=== PATIENT | male | born 1950 | race Hispanic/Latino ===

== ENCOUNTER 2017-05-06 13:11 | Emergency (ER) | payer OTHER, MEDICARE ==
[2017-05-06 13:39] LABS: BASOPHILS % (AUTO) 0.7 % (0.0-5.0); EOSINOPHILS % (AUTO) 6.3 % (0.0-8.0); HEMATOCRIT 47.9 % (42-54); LYMPHOCYTES % (AUTO) 17.4 % (21.0-51.0); MEAN CORPUSCULAR HEMOGLOBIN 32.2 pg (27.0-33.0); MEAN CORPUSCULAR HGB CONC 33.3 g/dL (32.0-36.0); MEAN CORPUSCULAR VOLUME 96.8 fL (79-99); MONOCYTES % (AUTO) 10.9 % (3.0-13.0); NEUTROPHILS % (AUTO) 64.7 % (40.0-77.0); PLATELET COUNT (AUTO) 166 K/uL (130-400); RED BLOOD CELL COUNT(AUTO) 4.94 MIL/uL (4.50-6.20); RED CELL DISTRIBUTION WIDTH 13.6 % (11.0-15.5); WHITE BLOOD COUNT (AUTO) 11.1 K/uL (4.8-10.8)
[2017-05-06] MEDS ORDERED: MORPHINE SULFATE 4 MG/1ML SYG ONE (13:44)
[2017-05-06 14:17] LABS: CREATININE 0.9 mg/dL (0.5-1.5); POTASSIUM 3.8 mmol/L (3.5-5.1)
[2017-05-06 14:22] LABS: APPEARANCE,URINE Clear (CLEAR); BILIRUBIN,URINE Negative (NEGATIVE); COLOR,URINE Yellow (YELLOW); GLUCOSE, URINE (UA) Negative (NEGATIVE); KETONES,URINE Negative (NEGATIVE); LEUKOCYTE ESTERASE ,URINE Negative (NEGATIVE); NITRATE,URINE Negative (NEGATIVE); OCCULT BLOOD,URINE Negative (NEGATIVE); PH,URINE 7.5 (5.0-8.0); PROTEIN,URINE Negative (NEGATIVE)
[2017-05-06 14:24] LABS: ALBUMIN 3.2 g/dL (3.5-5.0); BILIRUBIN,TOTAL 0.5 mg/dL (0.2-1.0); TOTAL PROTEIN, SERUM 7.2 g/dL (6.0-8.3)
[2017-05-06] MEDS ORDERED: LIDOCAINE 5% TOPICAL PATCH TP ONE (17:08)
[2017-05-06] MEDS ORDERED: KETOROLAC TROMETHAMINE 15MG/ML ONE (17:08)
[2017-05-06] MEDS ORDERED: ACETAMINOPHEN 325 MG TAB ONE (17:09)
== END 2017-05-06 17:40 | disposition home or self-care (01) ==
LOC: EDH 13:11
DX: M54.16 Radiculopathy, lumbar region (principal); I10 Essential (primary) hypertension; E78.5 Hyperlipidemia, unspecified; E11.9 Type 2 diabetes mellitus without complications; Z87.891 Personal history of nicotine dependence
CPT/HCPCS: 36415; 73502; 80053; 81003; 85025; 85651; 96374; 96375; 99285; J1885; J2270

== ENCOUNTER 2018-09-15 13:40 | Emergency (ER) | payer OTHER, MEDICARE ==
[2018-09-15 14:37] LABS: BASOPHILS % (AUTO) 0.7 % (0.0-5.0); EOSINOPHILS % (AUTO) 6.7 % (0.0-8.0); HEMATOCRIT 47.5 % (42-54); LYMPHOCYTES % (AUTO) 12.8 % (21.0-51.0); MEAN CORPUSCULAR HEMOGLOBIN 32.7 pg (27.0-33.0); MEAN CORPUSCULAR HGB CONC 34.1 g/dL (32.0-36.0); MEAN CORPUSCULAR VOLUME 95.9 fL (79-99); MONOCYTES % (AUTO) 9.2 % (3.0-13.0); NEUTROPHILS % (AUTO) 70.6 % (40.0-77.0); NUCLEATED RED BLOOD CELLS 0.1 % (0.0-0.19); PLATELET COUNT (AUTO) 128 K/uL (130-400); RED BLOOD CELL COUNT(AUTO) 4.95 MIL/uL (4.50-6.20); RED CELL DISTRIBUTION WIDTH 14.2 % (11.0-15.5); WHITE BLOOD COUNT (AUTO) 11.1 K/uL (4.8-10.8)
[2018-09-15] MEDS ORDERED: ORPHENADRINE CITRATE 30 MG/ML ML ONE (14:37)
[2018-09-15] MEDS ORDERED: ASPIRIN 325 MG TABLET ONE (14:37)
[2018-09-15] MEDS ORDERED: ACETAMINOPHEN EXTRA STRENGTH 500 MG TABLET ONE (14:38)
[2018-09-15] MEDS ORDERED: LIDOCAINE 5% TOPICAL PATCH TP ONE (14:38)
[2018-09-15 14:56] LABS: CREATININE 0.9 mg/dL (0.5-1.5); POTASSIUM 4.2 mmol/L (3.5-5.1)
[2018-09-15 15:06] LABS: ALBUMIN 3.5 g/dL (3.5-5.0); BILIRUBIN,TOTAL 0.9 mg/dL (0.2-1.0); TOTAL PROTEIN, SERUM 7.2 g/dL (6.0-8.3)
[2018-09-15 15:07] LABS: INR 1.12 (0.85-1.15); PARTIAL THROMBOPLASTIN TIME 36.8 SEC (26.3-35.5); PROTHROMBIN TIME 11.7 SEC (9.6-11.6)
[2018-09-15 15:29] LABS: B-TYPE NATRIURETIC PEPTIDE 61 pg/mL (0-100)
== END 2018-09-15 16:01 | disposition home or self-care (01) ==
LOC: EDH 13:40
DX: S16.1XXA Strain of muscle, fascia and tendon at neck level, initial encounter (principal); S29.011A Strain of muscle and tendon of front wall of thorax, initial encounter; I10 Essential (primary) hypertension; E11.9 Type 2 diabetes mellitus without complications; E78.5 Hyperlipidemia, unspecified; Z98.890 Other specified postprocedural states; V59.59XA Passenger in pick-up truck or van injured in collision with other motor vehicles in traffic accident, initial encounter; Y93.89 Activity, other specified; Y92.410 Unspecified street and highway as the place of occurrence of the external cause; Y99.8 Other external cause status
CPT/HCPCS: 36415; 71045; 80053; 82550; 83874; 83880; 84484; 85025; 85610; 85730; 93005; 96374; 99285; J2360

== ENCOUNTER 2019-06-23 14:44 | Emergency (ER) | payer OTHER, MEDICARE ==
[2019-06-23 15:17] LABS: BASOPHILS % (AUTO) 1.3 % (0.0-5.0); EOSINOPHILS % (AUTO) 13.4 % (0.0-8.0); LYMPHOCYTES % (AUTO) 17.7 % (21.0-51.0); MEAN CORPUSCULAR HEMOGLOBIN 31.6 pg (27.0-33.0); MEAN CORPUSCULAR HGB CONC 33.8 g/dL (32.0-36.0); MEAN CORPUSCULAR VOLUME 93.3 fL (79-99); MONOCYTES % (AUTO) 9.7 % (3.0-13.0); NEUTROPHILS % (AUTO) 57.3 % (40.0-77.0); PLATELET COUNT (AUTO) 121 K/uL (130-400); RED CELL DISTRIBUTION WIDTH 13.2 % (11.0-15.5); WHITE BLOOD COUNT (AUTO) 6.4 K/uL (4.8-10.8)
[2019-06-23 15:28] LABS: POTASSIUM 3.7 mmol/L (3.5-5.1)
[2019-06-23 15:33] LABS: ALBUMIN 3.5 g/dL (3.5-5.0); BILIRUBIN,TOTAL 0.9 mg/dL (0.2-1.0); CRP QUANTITATIVE 2.6 mg/L (0.00-9.0); TOTAL PROTEIN, SERUM 6.9 g/dL (6.0-8.3)
[2019-06-23 16:24] LABS: ERYTHROCYTE SEDIMENTATION RATE 14 MM/HR (0-20)
[2019-06-23 16:30] LABS: APPEARANCE,URINE Clear (CLEAR); BILIRUBIN,URINE Negative (NEGATIVE); COLOR,URINE Yellow (YELLOW); GLUCOSE, URINE (UA) Negative (NEGATIVE); KETONES,URINE Negative (NEGATIVE); LEUKOCYTE ESTERASE ,URINE Small (NEGATIVE); NITRATE,URINE Negative (NEGATIVE); OCCULT BLOOD,URINE Negative (NEGATIVE); PROTEIN,URINE Negative (NEGATIVE)
[2019-06-23 16:47] LABS: BACTERIA,URINE Rare /HPF (None Seen); RBC,URINE None Seen /HPF (0-1); SQUAMOUS EPITHELIAL CELL,UR 0-2 /HPF (0-2); WBC,URINE 0-1 /HPF (0-1)
[2019-06-23 16:48] LABS: B-TYPE NATRIURETIC PEPTIDE 111 pg/mL (0-100)
[2019-06-23] MEDS ORDERED: CLINDAMYCIN 600 MG/D5% WATER 50 ML IV ONE (16:49)
== END 2019-06-23 17:36 | disposition home or self-care (01) ==
LOC: EDH 14:44
DX: L03.116 Cellulitis of left lower limb (principal); E11.65 Type 2 diabetes mellitus with hyperglycemia; R60.0 Localized edema; I10 Essential (primary) hypertension; E78.5 Hyperlipidemia, unspecified; Z87.891 Personal history of nicotine dependence
CPT/HCPCS: 36415; 71045; 73590; 80053; 81001; 82550; 83880; 84484; 85025; 85651; 86140; 93005; 93971; 96365; 99285; J3490

== ENCOUNTER → 2019-09-10 | Outpatient (CLI) | payer OTHER, MEDICARE ==
[~2019-09-10] MED LIST: ASPI-1005 PO; DEXA4 PO
== END | disposition home or self-care (01) ==
LOC: SHCH 13:21
PROVIDERS: ATTEND Internal Medicine Cardiovascular Disease
DX: I48.0 Paroxysmal atrial fibrillation (principal)
CPT/HCPCS: 93306

== ENCOUNTER → 2019-10-15 | Outpatient (CLI) | payer OTHER, MEDICARE | END | disposition home or self-care (01) | LOC: OIH 14:12 | PROVIDERS: ATTEND Internal Medicine | DX: M47.895 Other spondylosis, thoracolumbar region (principal); M47.898 Other spondylosis, sacral and sacrococcygeal region; M06.4 Inflammatory polyarthropathy; M25.78 Osteophyte, vertebrae; G95.19 Other vascular myelopathies | CPT/HCPCS: 72100; 72202 ==

== ENCOUNTER 2019-11-21 18:30 | Inpatient (IN) | payer OTHER, MEDICARE ==
[~2019-11-21] VITALS: Ht 167.6 cm; Wt 131.1 kg
[2019-11-21] MEDS: AZITHROMYCIN 500MG+NS 250ML 250 ML IV SCH (03:00)
[2019-11-21 19:17] LABS: ABG BASE EXCESS -6.2 mmol/L (-2.0-3.0); ABG HCO3 16.4 mmol/L (21.0-28.0); ABG OXYGEN SATURATION 96.7 % (95.0-99.0); ABG PCO2 27 mmHg (35-48)
[2019-11-21 19:20] LABS: BASOPHILS % (AUTO) 0.6 % (0.0-5.0); EOSINOPHILS % (AUTO) 5.1 % (0.0-8.0); HEMATOCRIT 46.2 % (42-54); LYMPHOCYTES % (AUTO) 8.7 % (21.0-51.0); MEAN CORPUSCULAR HEMOGLOBIN 30.7 pg (27.0-33.0); MEAN CORPUSCULAR HGB CONC 34.8 g/dL (32.0-36.0); MONOCYTES % (AUTO) 4.1 % (3.0-13.0); NEUTROPHILS % (AUTO) 80.9 % (40.0-77.0); PLATELET COUNT (AUTO) 177 K/uL (130-400); RED BLOOD CELL COUNT(AUTO) 5.25 MIL/uL (4.50-6.20); RED CELL DISTRIBUTION WIDTH 13.1 % (11.0-15.5); WHITE BLOOD COUNT (AUTO) 7.9 K/uL (4.8-10.8)
[2019-11-21 19:29] LABS: INR 1.08 (0.85-1.15); PARTIAL THROMBOPLASTIN TIME 27.4 SEC (26.3-35.5); PROTHROMBIN TIME 11.6 SEC (9.6-11.6)
[2019-11-21 19:40] LABS: POTASSIUM 3.8 mmol/L (3.5-5.1)
[2019-11-21] MEDS ORDERED: DEXAMETHASONE SOD PHOSPHATE 10MG/ML 1ML VIAL ONE (19:43)
[2019-11-21 19:44] LABS: ALBUMIN 2.9 g/dL (3.5-5.0); BILIRUBIN,TOTAL 1.3 mg/dL (0.2-1.0); CRP QUANTITATIVE 93.7 mg/L (0.00-9.0); TOTAL PROTEIN, SERUM 7.4 g/dL (6.0-8.3)
[2019-11-21 19:45] LABS: B-TYPE NATRIURETIC PEPTIDE 62 pg/mL (0-100)
[2019-11-21] MEDS ORDERED: CEFTRIAXONE SODIUM 1 GM ONE (20:12)
[2019-11-21] MEDS ORDERED: ENOXAPARIN SODIUM 40 MG/0.4 ML SYRINGE SQ ONE (20:12)
[2019-11-21] MEDS ORDERED: AZITHROMYCIN 250 MG TABLET PO ONE (20:13)
[2019-11-21] MEDS ORDERED: ALBUTEROL INHALER 90MCG/INH IH PRN (22:45)
[2019-11-21] MEDS ORDERED: SODIUM CHLORIDE 0.9% 1000ML 1,000 ML IV SCH (22:45)
[2019-11-21] MEDS ORDERED: ACETAMINOPHEN 325 MG TAB PO PRN (22:45)
[2019-11-21] MEDS ORDERED: ONDANSETRON HCL 4 MG/2 ML VIAL IVP PRN (22:45)
[2019-11-21] MEDS ORDERED: HYDRALAZINE HCL 20 MG/ML VIAL IV PRN (22:45)
[2019-11-21] MEDS ORDERED: ALBUTEROL INHALER 90MCG/INH IH ONE (23:13)
[2019-11-21] MEDS ORDERED: SODIUM CHLORIDE 0.9% 1000ML 1,000 ML IV ONE (23:13)
--- NOTE | 2019-11-22 02:05 | NUR ---
patient request to leave ama , however patient is blind and spouse was called and explained the plan of care and the importance of staying. After speaking to the [phone], was requesting patient to stay until the morning. I have discussed the importance of patient staying, he did sign ama form but pending family to come and see, will tell day shift so that md can be notified.
[2019-11-22] MEDS: AZITHROMYCIN 500MG+NS 250ML 250 ML IV SCH (03:00)
[2019-11-22 04:24] LABS: ABG BASE EXCESS -8.8 mmol/L (-2.0-3.0); ABG HCO3 15.5 mmol/L (21.0-28.0); ABG OXYGEN SATURATION 97.7 % (95.0-99.0); ABG PCO2 30 mmHg (35-48)
[2019-11-22] MEDS ORDERED: DEXAMETHASONE SOD PHOSPHATE 4 MG/ML 5ML VIAL ONE (05:17)
[2019-11-22 06:42] LABS: HEMATOCRIT 44.3 % (42-54); MEAN CORPUSCULAR HEMOGLOBIN 30.7 pg (27.0-33.0); MEAN CORPUSCULAR HGB CONC 34.8 g/dL (32.0-36.0); MEAN CORPUSCULAR VOLUME 88.2 fL (79-99); RED BLOOD CELL COUNT(AUTO) 5.02 MIL/uL (4.50-6.20); RED CELL DISTRIBUTION WIDTH 12.9 % (11.0-15.5); WHITE BLOOD COUNT (AUTO) 4.8 K/uL (4.8-10.8)
[2019-11-22 07:03] LABS: POTASSIUM 4.1 mmol/L (3.5-5.1)
[2019-11-22] MEDS ORDERED: INSULIN HUMULIN R 100 UNIT/ML 3ML SQ SCH (07:30)
[2019-11-22] MEDS ORDERED: ENOXAPARIN SODIUM 60 MG/0.6 ML SQ ONE (08:37)
[2019-11-22] MEDS ORDERED: DEXAMETHASONE 4 MG TAB ONE (08:37)
[2019-11-22] MEDS ORDERED: METOPROLOL TARTRATE 25 MG TAB ONE (08:37)
[2019-11-22] MEDS ORDERED: DEXAMETHASONE SOD PHOSPHATE 4 MG/ML 1ML VIAL IVP SCH (09:00)
[2019-11-22] MEDS ORDERED: DEXAMETHASONE 4 MG TAB PO SCH (09:00)
[2019-11-22] MEDS: ENOXAPARIN SODIUM 60 MG/0.6 ML SQ SCH ×2 (10:45→22:45)
--- NOTE | 2019-11-22 18:39 | NUR ---
INITIAL: Call placed to ENRIQUE Flores(spouse). Prior to admission pt was living w her and son. PT was independent w ambulation and ADLs. Pt has a nebulizer if needed. Pt was also receiving provider services thru [facility] from 8a-2pm. Per Sandra, dcp is for home. CM to continue to follow and wait for Md recommendations. Addendum: 11/22/19 at 1840 by XIANG RIZO Amended: Links added.
[2019-11-22] MEDS ORDERED: GUAIFENESIN-DM 200/20 MG 10 ML PO PRN (20:30)
[2019-11-22] MEDS ORDERED: MAG HYDROX/AL HYDROX/SIMETH ES 30 ML SUSP UDCUP PO PRN (20:30)
[2019-11-22] MEDS ORDERED: HYDRALAZINE HCL 20 MG/ML VIAL IV PRN (20:30)
[2019-11-22] MEDS ORDERED: NITROGLYCERIN 0.4 MG SL TAB SL PRN (20:30)
[2019-11-22] MEDS ORDERED: POTASSIUM CHLORIDE 10% ELIXIR 20 MEQ/15 ML UDCUP PO PRN (20:30)
[2019-11-22] MEDS ORDERED: LACTULOSE 20 GM/30 ML UDCUP PO PRN (20:30)
[2019-11-22] MEDS ORDERED: ONDANSETRON HCL 4 MG/2 ML VIAL IV PRN (20:30)
[2019-11-22] MEDS ORDERED: DiphenhydrAMINE HCL 50 MG/ML VIAL IV PRN (20:30)
[2019-11-22] MEDS ORDERED: LIDOCAINE HCL-MPF 1% 2ML VIAL IV PRN (20:30)
[2019-11-22] MEDS ORDERED: POTASSIUM CHLORIDE 20MEQ/100ML 100 ML IV PRN (20:30)
[2019-11-22] MEDS ORDERED: POTASSIUM CHLORIDE 20 MEQ ERTAB PO PRN (20:30)
[2019-11-22] MEDS ORDERED: MORPHINE SULFATE 2 MG/ML 1ML SYG IV PRN (20:30)
[2019-11-22] MEDS ORDERED: DIPHENHYDRAMINE HCL 25 MG CAPSULE PO PRN (20:30)
[2019-11-22] MEDS ORDERED: MAGNESIUM 2GM PREMIX 50ML 50 ML IV PRN (20:30)
[2019-11-22] MEDS ORDERED: ACETAMINOPHEN 325 MG TAB PO PRN ×2 (20:30)
[2019-11-22] MEDS ORDERED: ZOLPIDEM TARTRATE 5 MG TAB PO PRN (20:30)
[2019-11-22] MEDS: METOPROLOL TARTRATE 25 MG TAB PO SCH (21:00)
[2019-11-22] MEDS: INSULIN HUMULIN R 100 UNIT/ML 3ML SQ SCH (21:00)
[2019-11-22] MEDS ORDERED: FAMOTIDINE 20MG TAB 20 MG TAB ONE (23:27)
[2019-11-23] MEDS ORDERED: ENOXAPARIN SODIUM 60 MG/0.6 ML SQ ONE ×3 (00:39→20:59)
[2019-11-23] MEDS ORDERED: METOPROLOL TARTRATE 25 MG TAB ONE ×3 (00:40→20:59)
[2019-11-23] MEDS: AZITHROMYCIN 500MG+NS 250ML 250 ML IV SCH (03:00)
[2019-11-23] MEDS ORDERED: AZITHROMYCIN 500MG+NS 250ML 250 ML IV ONE (03:43)
[2019-11-23 06:39] LABS: BASOPHILS % (AUTO) 0.2 % (0.0-5.0); HEMATOCRIT 44.4 % (42-54); MEAN CORPUSCULAR HEMOGLOBIN 30.9 pg (27.0-33.0); MEAN CORPUSCULAR HGB CONC 34.9 g/dL (32.0-36.0); MEAN CORPUSCULAR VOLUME 88.4 fL (79-99); MONOCYTES % (AUTO) 5.8 % (3.0-13.0); NEUTROPHILS % (AUTO) 86.4 % (40.0-77.0); PLATELET COUNT (AUTO) 226 K/uL (130-400); RED BLOOD CELL COUNT(AUTO) 5.02 MIL/uL (4.50-6.20); RED CELL DISTRIBUTION WIDTH 13.1 % (11.0-15.5); WHITE BLOOD COUNT (AUTO) 12.4 K/uL (4.8-10.8)
[2019-11-23 07:03] LABS: ALBUMIN 2.8 g/dL (3.5-5.0); BILIRUBIN,TOTAL 0.9 mg/dL (0.2-1.0); CRP QUANTITATIVE 99.4 mg/L (0.00-9.0); MAGNESIUM 2.1 mg/dL (1.80-2.40); THYROID STIMULATING HORMONE 0.51 uIU/mL (0.36-3.74); TOTAL PROTEIN, SERUM 7.3 g/dL (6.0-8.3)
[2019-11-23 07:04] LABS: B-TYPE NATRIURETIC PEPTIDE 169 pg/mL (0-100)
[2019-11-23] MEDS: INSULIN HUMULIN R 100 UNIT/ML 3ML SQ SCH ×4 (07:30→21:00)
[2019-11-23] MEDS: METOPROLOL TARTRATE 25 MG TAB PO SCH ×2 (09:00→21:00)
[2019-11-23] MEDS: FAMOTIDINE 20MG TAB 20 MG TAB PO SCH ×2 (09:00→21:00)
[2019-11-23] MEDS: DEXAMETHASONE 4 MG TAB PO SCH (09:00)
[2019-11-23] MEDS ORDERED: FAMOTIDINE 20MG TAB 20 MG TAB ONE (09:09)
[2019-11-23] MEDS ORDERED: DEXAMETHASONE 4 MG TAB ONE (09:09)
[2019-11-23] MEDS: ENOXAPARIN SODIUM 60 MG/0.6 ML SQ SCH ×2 (10:45→22:45)
[2019-11-23] MEDS ORDERED: FAMOTIDINE/PF 20 MG/2 ML VIAL IV ONE (21:00)
[2019-11-24] VITALS (7 sets, daily range): BP systolic 137–153; BP diastolic 62–96
[2019-11-24] MEDS: AZITHROMYCIN 500MG+NS 250ML 250 ML IV SCH (03:00)
[2019-11-24] MEDS ORDERED: AZITHROMYCIN 500MG+NS 250ML 250 ML IV ONE (05:30)
[2019-11-24 06:26] LABS: HEMATOCRIT 45.7 % (42-54); MEAN CORPUSCULAR HEMOGLOBIN 31.1 pg (27.0-33.0); MEAN CORPUSCULAR HGB CONC 34.1 g/dL (32.0-36.0); MEAN CORPUSCULAR VOLUME 91.2 fL (79-99); PLATELET COUNT (AUTO) 212 K/uL (130-400); RED BLOOD CELL COUNT(AUTO) 5.01 MIL/uL (4.50-6.20); RED CELL DISTRIBUTION WIDTH 13.2 % (11.0-15.5); WHITE BLOOD COUNT (AUTO) 10.6 K/uL (4.8-10.8)
[2019-11-24] MEDS: INSULIN HUMULIN R 100 UNIT/ML 3ML SQ SCH ×4 (07:30→21:00)
[2019-11-24 08:38] LABS: CREATININE 1.1 mg/dL (0.5-1.5); CRP QUANTITATIVE 48.7 mg/L (0.00-9.0); MAGNESIUM 2.3 mg/dL (1.80-2.40); POTASSIUM 4.3 mmol/L (3.5-5.1); TOTAL PROTEIN, SERUM 7.5 g/dL (6.0-8.3)
[2019-11-24] MEDS: DEXAMETHASONE 4 MG TAB PO SCH ×2 (09:00→10:17)
[2019-11-24] MEDS: FAMOTIDINE 20MG TAB 20 MG TAB PO SCH ×3 (09:00→21:04)
[2019-11-24] MEDS: METOPROLOL TARTRATE 25 MG TAB PO SCH ×3 (09:00→21:04)
[2019-11-24 09:10] LABS: LYMPHOCYTES % (MANUAL) 2 % (22-44); MAN.DIFF COMMENT-IMPRESSION MANUAL DIFFERENTIAL; MONOCYTES % (MANUAL) 2 % (2-9); PLATELET MORPHOLOGY COMMENT ADEQUATE; SEGMENTED NEUTROPHILS % 96 % (40-70)
[2019-11-24] MEDS: ENOXAPARIN SODIUM 60 MG/0.6 ML SQ SCH ×3 (10:17→21:04)
[2019-11-25] MEDS: AZITHROMYCIN 500MG+NS 250ML 250 ML IV SCH (01:58)
[2019-11-25 04:00] VITALS: BP 139/77
[2019-11-25] MEDS ORDERED: PHARMACY COMMUNICATION MISC SCH (07:00)
[2019-11-25] MEDS: INSULIN HUMULIN R 100 UNIT/ML 3ML SQ SCH ×4 (07:04→21:45)
[2019-11-25 07:42] LABS: BASOPHILS % (AUTO) 0.1 % (0.0-5.0); EOSINOPHILS % (AUTO) 0.3 % (0.0-8.0); HEMATOCRIT 43.6 % (42-54); LYMPHOCYTES % (AUTO) 11.5 % (21.0-51.0); MEAN CORPUSCULAR HEMOGLOBIN 30.2 pg (27.0-33.0); MEAN CORPUSCULAR HGB CONC 33.7 g/dL (32.0-36.0); MEAN CORPUSCULAR VOLUME 89.5 fL (79-99); MONOCYTES % (AUTO) 9.1 % (3.0-13.0); NEUTROPHILS % (AUTO) 77.5 % (40.0-77.0); PLATELET COUNT (AUTO) 171 K/uL (130-400); RED BLOOD CELL COUNT(AUTO) 4.87 MIL/uL (4.50-6.20); RED CELL DISTRIBUTION WIDTH 13.1 % (11.0-15.5); WHITE BLOOD COUNT (AUTO) 7.3 K/uL (4.8-10.8)
--- NOTE | 2019-11-25 08:00 | NUR ---
PATIENT HAS BLUE COVING ON BOTH EYES PATIENT IS LEGALLY BLIND Addendum: 11/25/19 at 1232 by SCOTT CORRAL RN RN Amended: Links added.
[2019-11-25 08:01] LABS: CRP QUANTITATIVE 35.8 mg/L (0.00-9.0)
[2019-11-25 09:11] VITALS: BP 141/65
[2019-11-25] MEDS: FAMOTIDINE 20MG TAB 20 MG TAB PO SCH ×2 (09:50→21:33)
[2019-11-25] MEDS: METOPROLOL TARTRATE 25 MG TAB PO SCH ×2 (09:50→21:33)
[2019-11-25] MEDS: DEXAMETHASONE 4 MG TAB PO SCH (09:51)
[2019-11-25] MEDS: ENOXAPARIN SODIUM 60 MG/0.6 ML SQ SCH ×2 (09:52→21:34)
--- NOTE | 2019-11-25 11:05 | NUR ---
PHYSICIAN ROUNDS [facility]AG[facility] BOSCH ROUNDS FOR BENCHMARK ORDERS RECEIVED FOR PATIENT TO BE EVALUATED BY RESPIRATORY FOR NEED OF USE OF O2 AT HOME ORDERS PLACED.
[2019-11-25 12:03] VITALS: BP 148/57
[2019-11-25] MEDS ORDERED: ASPI-1005 PO (16:36)
[2019-11-25] MEDS ORDERED: DEXA4 PO (16:36)
[2019-11-25 16:42] VITALS: BP 135/98
--- NOTE | 2019-11-25 16:50 | NUR ---
CM Note: [facility] pending approval for O2 portable and concentrator CM spoke to pt discussed qualified for home O2, CM to arranged DME prior to DC, pt agreeable, telephone consent MARCIANO obtained for [facility]/Any DME that will approve. Faxed script and and clinicals to [facility], confirmation received. Pt pending approval. Primary nurse aware. CM to cont to follow up.
--- NOTE | 2019-11-25 18:46 | NUR ---
DISCHARGE PENDING ON DELIVERY ON HOME O2.
[2019-11-25 19:25] VITALS: BP 160/73
[2019-11-25 20:00] VITALS: BP 160/73
--- NOTE | 2019-11-25 22:25 | NUR ---
Patient heart rate in the 48-52 range, did received Lopressor 12.5 at 2130. Patient asymptomatic will continue to monitor. Addendum: 11/25/19 at 2226 by BIBI MOREL RN RN Amended: Links added.
[2019-11-26] VITALS: BP 118/59
[2019-11-26] MEDS: AZITHROMYCIN 500MG+NS 250ML 250 ML IV SCH (02:01)
[2019-11-26 03:30] VITALS: BP 143/64
[2019-11-26] MEDS: INSULIN HUMULIN R 100 UNIT/ML 3ML SQ SCH ×3 (05:59→16:30)
[2019-11-26 06:42] LABS: HEMATOCRIT 44.5 % (42-54); MEAN CORPUSCULAR HEMOGLOBIN 30.8 pg (27.0-33.0); MEAN CORPUSCULAR HGB CONC 34.4 g/dL (32.0-36.0); MEAN CORPUSCULAR VOLUME 89.5 fL (79-99); PLATELET COUNT (AUTO) 165 K/uL (130-400); RED BLOOD CELL COUNT(AUTO) 4.97 MIL/uL (4.50-6.20); WHITE BLOOD COUNT (AUTO) 6.6 K/uL (4.8-10.8)
[2019-11-26 07:20] LABS: ALBUMIN 2.5 g/dL (3.5-5.0); BILIRUBIN,TOTAL 1.1 mg/dL (0.2-1.0); CREATININE 0.8 mg/dL (0.5-1.5); POTASSIUM 3.5 mmol/L (3.5-5.1); TOTAL PROTEIN, SERUM 6.6 g/dL (6.0-8.3)
[2019-11-26 08:14] LABS: LYMPHOCYTES % (MANUAL) 5 % (22-44); MAN.DIFF COMMENT-IMPRESSION MANUAL DIFFERENTIAL; MONOCYTES % (MANUAL) 9 % (2-9); PLATELET MORPHOLOGY COMMENT ADEQUATE; REACTIVE LYMPHOCYTES 3 % (0-0); SEGMENTED NEUTROPHILS % 83 % (40-70)
[2019-11-26 08:41] VITALS: BP 139/63
[2019-11-26] MEDS: ENOXAPARIN SODIUM 60 MG/0.6 ML SQ SCH (09:21)
[2019-11-26] MEDS: DEXAMETHASONE 4 MG TAB PO SCH (09:21)
[2019-11-26] MEDS: FAMOTIDINE 20MG TAB 20 MG TAB PO SCH (09:21)
[2019-11-26] MEDS: METOPROLOL TARTRATE 25 MG TAB PO SCH (09:22)
[2019-11-26 11:20] VITALS: BP 126/64
--- NOTE | 2019-11-26 16:03 | NUR ---
CM Note: [facility] approval pending O2 delivery tomorrow CM spoke to Joahnna w/[facility]. Pt has approval, verbalized unable to deliver O2 portable and stationary until tomorrow as hook up driver is back up. Informed DME hospital will lend portable and concentrator, family to return both tomorrow once own DME delivered. Verbalized understanding. CM spoke to Evie RT Director, discussed if able to lend portable O2 to get pt home today, hospital will lend concentrator also, pt to return both once own equipments delivered at home. Per Evie ok to lend portable, will drop off in pt's room today. CM dropped off concentrator w/charge nurse Amber, given instructions. Made aware Evie will drop off portable. Patient family to return both to ED once own DME get delivered. Primary nurse made aware of the above. Patient safe to dc home via private car today once MD clear. CM to cont to follow up.
== END 2019-11-26 18:00 | disposition home or self-care (01) | DRG 177 ==
LOC: EDH 18:30 → EDHIP 20:43 → 3AH 11-24 05:32
PROVIDERS: ADMIT Internal Medicine; ATTEND Internal Medicine
DX: U07.1 COVID-19 (principal); J96.01 Acute respiratory failure with hypoxia; Z68.42 Body mass index [BMI] 45.0-49.9, adult; E11.9 Type 2 diabetes mellitus without complications; I10 Essential (primary) hypertension; I45.10 Unspecified right bundle-branch block; G47.33 Obstructive sleep apnea (adult) (pediatric); E66.01 Morbid (severe) obesity due to excess calories; H54.8 Legal blindness, as defined in USA; Z79.899 Other long term (current) drug therapy
CPT/HCPCS: 36415; 36600; 71045; 80048; 80053; 80061; 82435; 82728; 82803; 82947; 82948; 83605; 83615; 83735; 83880; 84132; 84145; 84295; 84439; 84443; 84480; 84484; 85018; 85025; 85027; 85378; 85610; 85730; 86140; 86850; 86900; 86901; 87804; 93005; 94760; 99291; G0378; J0456; J0696; J1100; J1650; J1815; J2405; J3490; J7030; J8540; U0003

== ENCOUNTER → 2022-10-22 | Outpatient (CLI) | payer OTHER, MEDICARE ==
[~2022-10-22] MED LIST changes: +ACET500C51 PO; +ALBU6.7H14 IH; +AMLO1CAP88 PO; +AMOX-426 PO; +BRIM5DRO21 OP; +CYCL30DR OP; -DEXA4 PO; +FLUT1AER IH; +LEVO5TAB13 PO; +MUPI22OI2 TP; +PRED20TA3 PO; +SOTA80TA PO; +TAMS-1 PO; +XALA2.5OS OD
== END | disposition home or self-care (01) ==
LOC: RAH 07:57
PROVIDERS: ATTEND Family Medicine
DX: R16.1 Splenomegaly, not elsewhere classified (principal); K76.89 Other specified diseases of liver
CPT/HCPCS: 76700

== ENCOUNTER 2022-10-28 21:44 | Emergency (ER) | payer OTHER, MEDICARE ==
[~2022-10-28] VITALS: Ht 185.4 cm; Wt 132.9 kg
[2022-10-28 22:24] LABS: BASOPHILS % (AUTO) 1.3 % (0.0-5.0); EOSINOPHILS % (AUTO) 4.1 % (0.0-8.0); HEMATOCRIT 41.3 % (42-54); LYMPHOCYTES % (AUTO) 38.2 % (21.0-51.0); MEAN CORPUSCULAR HGB CONC 34.4 g/dL (32.0-36.0); NEUTROPHILS % (AUTO) 40.5 % (40.0-77.0); PLATELET COUNT (AUTO) 157 K/uL (130-400); RED CELL DISTRIBUTION WIDTH 14.2 % (11.0-15.5); WHITE BLOOD COUNT (AUTO) 4.7 K/uL (4.8-10.8)
[2022-10-28 22:38] LABS: CREATININE 0.8 mg/dL (0.5-1.5); POTASSIUM 3.3 mmol/L (3.5-5.1)
[2022-10-28 22:42] LABS: ALBUMIN 2.9 g/dL (3.5-5.0); TOTAL PROTEIN, SERUM 6.3 g/dL (6.0-8.3)
[2022-10-28 23:00] LABS: B-TYPE NATRIURETIC PEPTIDE 77 pg/mL (0-100)
[2022-10-28 23:36] VITALS: BP 127/69
== END 2022-10-29 00:35 | disposition home or self-care (01) ==
LOC: EDH 21:44
DX: R06.02 Shortness of breath (principal); J44.9 Chronic obstructive pulmonary disease, unspecified; E11.9 Type 2 diabetes mellitus without complications; I10 Essential (primary) hypertension; Z79.51 Long term (current) use of inhaled steroids; Z79.52 Long term (current) use of systemic steroids; Z79.82 Long term (current) use of aspirin; Z20.822 Contact with and (suspected) exposure to COVID-19
CPT/HCPCS: 99285; 71045; 87635; 84484; 80053; 83880; 85025; 87880; 87804 ×2; 36415; 93005; C9803

== ENCOUNTER → 2022-11-20 | Outpatient (CLI) | payer OTHER, MEDICARE ==
[~2022-11-20] MED LIST changes: +REGADENOSON 0.4 MG/5 ML PF SYG IVP ONE
== END | disposition home or self-care (01) ==
LOC: SHCH 08:08
PROVIDERS: ATTEND Internal Medicine Cardiovascular Disease
DX: R93.1 Abnormal findings on diagnostic imaging of heart and coronary circulation (principal); J44.9 Chronic obstructive pulmonary disease, unspecified; I10 Essential (primary) hypertension; E78.5 Hyperlipidemia, unspecified; E11.9 Type 2 diabetes mellitus without complications; Z79.84 Long term (current) use of oral hypoglycemic drugs; Z79.82 Long term (current) use of aspirin; Z79.899 Other long term (current) drug therapy
CPT/HCPCS: 78452; 96374; 93017; J2785; A9500 ×2

== ENCOUNTER 2023-02-20 15:31 | Emergency (ER) | payer MEDICARE, OTHER ==
[~2023-02-20] VITALS: Ht 175.3 cm; Wt 127.0 kg
[~2023-02-20 15:31] MED LIST changes: -REGADENOSON 0.4 MG/5 ML PF SYG IVP ONE
[2023-02-20] MEDS ORDERED: ACETAMINOPHEN 500 MG TABLET ONE (17:15)
[2023-02-20 17:44] LABS: BASOPHILS # (AUTO) 0.03 K/uL (0.00-0.20); BASOPHILS % (AUTO) 0.5 % (0.0-5.0); EOSINOPHILS # (AUTO) 0.12 K/uL (0.00-0.70); HEMATOCRIT 42.7 % (42-54); IMMATURE GRANULOCYTE ABSOLUTE 0.03 K/uL (0-1); LYMPHOCYTES # (AUTO) 0.6 K/uL (1.0-4.8); LYMPHOCYTES % (AUTO) 9.6 % (21.0-51.0); MEAN CORPUSCULAR HGB CONC 33.5 g/dL (32.0-36.0); MEAN CORPUSCULAR VOLUME 98.6 fL (79-99); MONOCYTES # (AUTO) 0.4 K/uL (0.1-1.0); MONOCYTES % (AUTO) 7.2 % (3.0-13.0); NEUTROPHILS # (AUTO) 4.8 K/uL (1.8-7.7); NEUTROPHILS % (AUTO) 80.2 % (40.0-77.0); PLATELET COUNT (AUTO) 82 K/uL (130-400); RED BLOOD CELL COUNT(AUTO) 4.33 MIL/uL (4.50-6.20); RED CELL DISTRIBUTION WIDTH 13.4 % (11.0-15.5); WHITE BLOOD COUNT (AUTO) 5.9 K/uL (4.8-10.8)
[2023-02-20 17:47] LABS: POTASSIUM 3.7 mmol/L (3.5-5.1)
[2023-02-20 17:52] LABS: ALBUMIN 2.8 g/dL (3.5-5.0); BILIRUBIN,TOTAL 1.7 mg/dL (0.2-1.0); TOTAL PROTEIN, SERUM 6.3 g/dL (6.0-8.3)
[2023-02-20 19:29] LABS: APPEARANCE,URINE CLEAR (CLEAR); BILIRUBIN,URINE NEGATIVE (NEGATIVE); COLOR,URINE YELLOW (YELLOW); GLUCOSE, URINE (UA) NEGATIVE (NEGATIVE); KETONES,URINE NEGATIVE (NEGATIVE); LEUKOCYTE ESTERASE ,URINE 25 Leu/uL (NEGATIVE); NITRATE,URINE NEGATIVE (NEGATIVE); PROTEIN,URINE NEGATIVE (NEGATIVE); UROBILINOGEN,URINE 3 mg/dL (0.2-1.0)
[2023-02-20 19:30] LABS: ADD UA MICROSCOPIC YES
[2023-02-20 19:32] LABS: MUCUS,URINE RARE LPF (None Seen); SQUAMOUS EPITHELIAL CELL,UR RARE /HPF (0-2)
[2023-02-20 20:38] LABS: SARS-CoV-2, RNA, NAAT NEGATIVE SARS CoV-2 (NEGATIVE)
[2023-02-20 20:42] LABS: INFLUENZA TYPE A Negative For Type A (NEGATIVE); INFLUENZA TYPE B Negative For Type B (NEGATIVE)
[2023-02-20] MEDS ORDERED: CEPH500B PO (22:18)
[2023-02-20 22:43] VITALS: BP 107/69; PULSE 67; RESP 16; O2SAT 97
[2023-02-20 23:13] VITALS: TEMP 98.6
== END 2023-02-20 23:13 | disposition home or self-care (01) ==
LOC: EDH 15:31
DX: L03.116 Cellulitis of left lower limb (principal); R32 Unspecified urinary incontinence; I10 Essential (primary) hypertension; E11.9 Type 2 diabetes mellitus without complications; E78.00 Pure hypercholesterolemia, unspecified; J44.9 Chronic obstructive pulmonary disease, unspecified; Z20.822 Contact with and (suspected) exposure to COVID-19; Z79.82 Long term (current) use of aspirin; Z79.899 Other long term (current) drug therapy
CPT/HCPCS: 99285; 71045; 87635; 84484; 80053; 85025; 87040 ×2; 87804 ×2; 83605; 81001; 36415; 93005; C9803